=== PATIENT | female | born 1970 | race Caucasian/White ===

== ENCOUNTER 2017-02-19 22:23 | Emergency (ER) | payer MEDICAID, OTHER | END 2017-02-19 23:04 | disposition home or self-care (01) | DX: M77.31 Calcaneal spur, right foot (principal); R03.0 Elevated blood-pressure reading, without diagnosis of hypertension; E78.00 Pure hypercholesterolemia, unspecified; K21.9 Gastro-esophageal reflux disease without esophagitis; Z86.73 Personal history of transient ischemic attack (TIA), and cerebral infarction without residual deficits; F17.200 Nicotine dependence, unspecified, uncomplicated ==

== ENCOUNTER 2018-02-16 20:28 | Emergency (ER) | payer MEDICAID ==
--- NOTE | 2018-02-16 23:09 | ED Physician Documentation ---
PD HPI HEENT - Stated complaint Stated Complaint: TOOTH PX - Chief complaint Chief Complaint: Heent - History obtained from History obtained from: Patient - History of Present Illness Timing - onset: Last night Timing - details: Abrupt onset Pain level now: 7 Location: Tooth Recently seen: Not recently seen - Additional information Additional information: broke tooth last night while chewing, has pain and sensation of swelling. Her chief concern is risk of infection. 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 : None HEENT: None Psych: Panic attacks, Post traumatic stress disorder Musculoskeletal: None Derm: None - Past Surgical History Past Surgical History: Yes General: Cholecystectomy Ortho: Spine surgery /MORTGAGE LOAN PROCESSING CLERK: section - Present Medications Home Medications: Ambulatory Orders Medication Instructions Recorded Confirmed Atorvastatin Calcium [Lipitor] 40 mg PO DAILY 07/06/14 02/16/18 clonazePAM [KlonoPIN] 1 mg PO TID 07/06/14 02/19/17 Cyclobenzaprine [Flexeril] 10 mg PO TID 02/19/17 02/19/17 Aspirin EC [Ecotrin] 1 tab PO DAILY 02/16/18 02/16/18 Penicillin Vk 500 mg PO Q6H 5 Days tablet 02/16/18 - Allergies Allergies/Adverse Reactions: Allergies Allergy/AdvReac Type Severity Reaction Status Date / Time clopidogrel bisulfate * Allergy Unknown Verified 02/16/18 20:41 [From Plavix] hydrocodone bitartrate * Allergy Unknown Verified 02/16/18 20:41 [From Vicodin] iodine Allergy Unknown Verified 02/16/18 20:41 naproxen Allergy Unknown Verified 02/16/18 20:41 - Social History Does the pt smoke?: Yes Smoking Status: Current every day smoker Does the pt drink ETOH?: No Does the pt have substance abuse?: No - Immunizations Immunizations are current?: Yes - POLST Patient has POLST: No PD ED PE NORMAL - Vitals Vital signs reviewed: Yes - General General: Alert and oriented X 3, No acute distress, Well developed/nourished PD ED PE EXPANDED - HEENT HEENT Visual: 1 - deformity (posterior aspect of tooth is absent (and teeth 17-20 are entirely absent)) Results - Vitals Vitals: Vital Signs - 24 hr 02/16/18 02/16/18 20:38 23:34 Temperature 36.0 C L 35.6 C L Heart Rate 107 H 102 H Respiratory 16 18 Rate Blood Pressure 142/99 H 152/97 H O2 Saturation 98 97 Oxygen O2 Source Room air PD MEDICAL DECISION MAKING - ED course Complexity details: reviewed old records, considered differential, d/w patient ED course: no evidence of infection; rx plavix as prophylaxis. Cavit applied with good result (no longer feels sharp edge of the tooth). She says she is visiting [place] and will be returning home Tuesday; she says she will likely be able to see a dentist when she returns home. Departure - Departure Disposition: Home, Self Care Clinical Impression: Pain, dental Condition: Good Instructions: ED Tooth Pain Follow-Up: ZOË BUTTERFIELD MD [Primary Care Provider] - Prescriptions: Penicillin Vk 500 mg PO Q6H 5 Days tablet Discharge Date/Time: 02/16/18 23:38
[2018-02-16] MEDS ORDERED: PENICILLIN VK 250 MG TABLET PO STA (23:21)
[2018-02-16 23:35] VITALS: BP 152/97
== END 2018-02-16 23:38 | disposition home or self-care (01) ==
LOC: ED 20:28
DX: K08.89 Other specified disorders of teeth and supporting structures (principal); E78.00 Pure hypercholesterolemia, unspecified; F17.200 Nicotine dependence, unspecified, uncomplicated; Z86.73 Personal history of transient ischemic attack (TIA), and cerebral infarction without residual deficits
CPT/HCPCS: 99283; A9270

== ENCOUNTER 2018-09-21 19:24 | Emergency (ER) | payer MEDICAID ==
[2018-09-21] MEDS ORDERED: PENICILLIN VK 250 MG TABLET PO STA (20:06)
[2018-09-21] MEDS ORDERED: oxyCODONE 5 MG TABLET PO STA (20:16)
--- NOTE | 2018-09-21 20:18 | ED Physician Documentation ---
History of Present Illness - Stated complaint Stated Complaint: BROKEN TOOTH - Chief complaint Chief Complaint: Heent - History obtained from History obtained from: Patient - History of Present Illness Timing: How many days ago (2) Pain level max: 8 Pain level now: 8 Improved by: Nothing Worsened by: Temperature - Additonal information Additional information: Patient is a 47-year-old female who presents to the emergency department after breaking part of a porcelain filling off of the front of her tooth. Contacted her dentist who cannot see her, but did recommend placing dental wax over the area to help with discomfort. She is concerned it may be becoming infected. No fevers. 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 : None HEENT: None Psych: Panic attacks, Post traumatic stress disorder Musculoskeletal: None Derm: None - Past Surgical History Past Surgical History: Yes General: Cholecystectomy Ortho: Spine surgery /SAWING AND ASSEMBLY SUPERVISOR: section - Present Medications Home Medications: Ambulatory Orders Medication Instructions Recorded Confirmed Atorvastatin Calcium [Lipitor] 40 mg PO DAILY 07/06/14 02/16/18 clonazePAM [KlonoPIN] 1 mg PO TID 07/06/14 02/19/17 Cyclobenzaprine [Flexeril] 10 mg PO TID 02/19/17 02/19/17 Aspirin EC [Ecotrin] 1 tab PO DAILY 02/16/18 02/16/18 Albuterol Sulfate [Proair Hfa 1 - 2 puffs INH Q4H PRN 09/21/18 09/21/18 Inhaler] Oxycodone HCl/Acetaminophen 1 - 2 each PO Q6H PRN #9 tablet 09/21/18 [Percocet 5-325 mg Tablet] Penicillin V Potassium 500 mg PO Q6HR #40 tablet 09/21/18 - Allergies Allergies/Adverse Reactions: Allergies Allergy/AdvReac Type Severity Reaction Status Date / Time clopidogrel bisulfate * Allergy Unknown Verified 09/21/18 19:35 [From Plavix] hydrocodone bitartrate * Allergy Unknown Verified 09/21/18 19:35 [From Vicodin] iodine Allergy Unknown Verified 09/21/18 19:35 naproxen Allergy Unknown Verified 09/21/18 19:35 - Social History Does the pt smoke?: Yes Smoking Status: Current every day smoker Does the pt drink ETOH?: No Does the pt have substance abuse?: No - Immunizations Immunizations are current?: Yes - POLST Patient has POLST: No PD ED PE NORMAL - Vitals Vital signs reviewed: Yes - General General: Alert and oriented X 3, No acute distress - Neck Neck: Supple, no meningeal sign - Cardiac Cardiac: RRR - Respiratory Respiratory: No respiratory distress, Clear bilaterally - Derm Derm: Warm and dry - Extremities Extremities: No edema - Neuro Neuro: Alert and oriented X 3 - Psych Psych: Normal mood, Normal affect PD ED PE EXPANDED - HEENT HEENT Visual: 1 - tenderness (Part of the porcelain filling is missing) Results - Vitals Vitals: Vital Signs - 24 hr 09/21/18 09/21/18 19:33 20:31 Temperature 37 C Heart Rate 105 H 91 Respiratory 18 16 Rate Blood Pressure 167/97 H 156/93 H O2 Saturation 100 98 Oxygen O2 Source Room air PD MEDICAL DECISION MAKING - ED course Complexity details: considered differential, d/w patient, d/w family ED course: Benzocaine was applied with good relief of pain. Will prescribe pain medication for home as well as antibiotics. We will have her follow-up closely with her dentist. No drainable abscess. Patient counseled regarding signs and symptoms for which I believe and urgent re-evaluation would be necessary. Patient with good understanding of and agreement to plan and is comfortable going home at this time This document was made in part using voice recognition software. While efforts are made to proofread this document, sound alike and grammatical errors may occur. Departure - Departure Disposition: 01 Home, Self Care Clinical Impression: Pain due to dental caries Condition: Good Instructions: ED Tooth Pain Follow-Up: ZOË BUTTERFIELD MD [Primary Care Provider] - Prescriptions: Penicillin V Potassium 500 mg PO Q6HR #40 tablet Oxycodone HCl/Acetaminophen [Percocet 5-325 mg Tablet] 1 - 2 each PO Q6H PRN #9 tablet PRN Reason: pain Comments: Take all anitbiotics until gone. Return if you worsen. Do not drink alcohol or drive while on narcotic pain medicine. Note that many narcotic pain relievers also contain tylenol/acetaminophen. Please ensure that your total dose of acetaminophen from all sources does not exceed 3 grams (3000mg) per day. You may constipated on this medication, take a stool softener such as "Colace" twice a day while you are on it. Also recommend a [id number] laxative such as senna or MiraLAX any day that you do not have a bowel movement. If you received narcotic pain medication in the emergency department, do not drive or operate machinery for the next 24 hours. Discharge Date/Time: 09/21/18 20:38
[2018-09-21 20:33] VITALS: BP 156/93
== END 2018-09-21 20:38 | disposition home or self-care (01) ==
LOC: ED 19:24
DX: K02.9 Dental caries, unspecified (principal); E78.00 Pure hypercholesterolemia, unspecified; F17.200 Nicotine dependence, unspecified, uncomplicated
CPT/HCPCS: 99283; A9270

== ENCOUNTER 2019-06-12 17:06 | Emergency (ER) | payer MEDICAID ==
[2019-06-12 17:15] VITALS: BP 195/100
--- NOTE | 2019-06-12 17:35 | ED Physician Documentation ---
PD HPI LOWER EXT INJURY - Stated complaint Stated Complaint: LT KNEE PX - Chief complaint Chief Complaint: Ext Problem - History obtained from History obtained from: Patient - History of Present Illness PD HPI LOW EXT INJURY LOCATION: Left (No specific injury she awoke about a month ago with anterior and medial left knee pain. Is been progressive since that time. She seen her doctor several times and had negative x-rays, negative ultrasound. She is had 2 courses of steroids, muscle relaxers and Percocet without relief. 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 : None HEENT: None Psych: Panic attacks, Post traumatic stress disorder Musculoskeletal: None Derm: None - Past Surgical History Past Surgical History: Yes General: Cholecystectomy Ortho: Spine surgery /BOARD OF DIRECTORS: section - Present Medications Home Medications: Ambulatory Orders Medication Instructions Recorded Confirmed Atorvastatin Calcium [Lipitor] 40 mg PO DAILY 07/06/14 02/16/18 clonazePAM [KlonoPIN] 1 mg PO TID 07/06/14 02/19/17 Cyclobenzaprine [Flexeril] 10 mg PO TID 02/19/17 02/19/17 Aspirin EC [Ecotrin] 1 tab PO DAILY 02/16/18 02/16/18 Albuterol Sulfate [Proair Hfa 1 - 2 puffs INH Q4H PRN 09/21/18 09/21/18 Inhaler] Oxycodone HCl/Acetaminophen 1 - 2 each PO Q6H PRN #9 tablet 09/21/18 [Percocet 5-325 mg Tablet] Penicillin V Potassium 500 mg PO Q6HR #40 tablet 09/21/18 Tizanidine HCl 2 mg PO Q8H PRN #10 tablet 06/12/19 - Allergies Allergies/Adverse Reactions: Allergies Allergy/AdvReac Type Severity Reaction Status Date / Time clopidogrel bisulfate * Allergy Unknown Verified 09/21/18 19:35 [From Plavix] hydrocodone bitartrate * Allergy Unknown Verified 09/21/18 19:35 [From Vicodin] iodine Allergy Unknown Verified 09/21/18 19:35 naproxen Allergy Unknown Verified 09/21/18 19:35 - Social History Does the pt smoke?: Yes Smoking Status: Current every day smoker Does the pt drink ETOH?: No Does the pt have substance abuse?: No - Immunizations Immunizations are current?: Yes - POLST Patient has POLST: No PD ED PE NORMAL - Vitals Vital signs reviewed: Yes - General General: Alert and oriented X 3, No acute distress - Extremities Extremities: Other (The left knee has a tiny effusion, there is no warmth or redness. Relatively painless passive range of motion. Mild tenderness anteri amaris and medially. No ligamentous laxity.) - Neuro Neuro: Alert and oriented X 3, Normal speech Results - Vitals Vitals: Vital Signs - 24 hr 06/12/19 17:12 Temperature 36.5 C Heart Rate 108 H Respiratory 18 Rate Blood Pressure 195/100 H O2 Saturation 99 Oxygen O2 Source Room air PD MEDICAL DECISION MAKING - ED course ED course: 48-year-old woman with progressive knee pain. No evidence of infection. She has had a thorough outpatient work-up and there is no more emergency medical condition identified. Continued symptomatic treatment and follow-up with orthopedics was recommended. Departure - Departure Disposition: 01 Home, Self Care Clinical Impression: Left knee pain Qualifiers: Chronicity: acute Qualified Code(s): M25.562 - Pain in left knee Condition: Good Record reviewed to determine appropriate education?: Yes Instructions: ED Knee Pain [facility] Follow-Up: [facility] [Provider Group] - Within 1 week Prescriptions: Tizanidine HCl 2 mg PO Q8H PRN #10 tablet PRN Reason: Spasms Comments: Your blood pressure was elevated today on check into the emergency department. This does not mean that you have hypertension, it is a common phenomenon to come to the emergency department and have elevated blood pressure. I recommend that you see your primary care physician within the week to have it rechecked when you are feeling better.
== END 2019-06-12 17:42 | disposition home or self-care (01) ==
LOC: ED 17:06
DX: M25.462 Effusion, left knee (principal); R03.0 Elevated blood-pressure reading, without diagnosis of hypertension; F17.200 Nicotine dependence, unspecified, uncomplicated
CPT/HCPCS: 99283

== ENCOUNTER 2020-08-15 19:27 | Emergency (ER) | payer MEDICAID ==
--- NOTE | 2020-08-15 22:17 | ED Physician Documentation ---
History of Present Illness - Stated complaint Stated Complaint: COUGH, CP - Chief complaint Chief Complaint: Resp - History obtained from History obtained from: Patient - Additonal information Additional information: Patient is a 49-year-old female who presents with a chief complaint of 2-day history of cough. Patient denies fevers she reports a dry cough, she is concerned that she is at home with her family who has a child and wants to make sure that it is okay for her to stay around the baby. She denies any known COVID contacts denies any chest pain or wheezing or shortness of breath.R eports that she is a former smoker who quit smoking 2 months ago. Review of Systems Constitutional: reports: Reviewed and negative Eyes: reports: Reviewed and negative Ears: reports: Reviewed and negative Nose: reports: Reviewed and negative Throat: reports: Reviewed and negative Cardiac: reports: Reviewed and negative Respiratory: reports: Cough GI: reports: Reviewed and negative : reports: Reviewed and negative Skin: reports: Reviewed and negative Musculoskeletal: reports: Reviewed and negative Neurologic: reports: Reviewed and negative Psychiatric: reports: Reviewed and negative Endocrine: reports: Reviewed and negative Immunocompromised: reports: Reviewed and negative PD PAST MEDICAL HISTORY - Past Medical History Past Medical History: Yes Cardiovascular: Hypertension, High cholesterol Respiratory: Asthma, Other Neuro: TIA Endocrine/Autoimmune: None GI: GERD 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 HEENT: None Psych: Panic attacks, Post traumatic stress disorder Musculoskeletal: None Derm: None Other Past Medical History: bronchitis - Past Surgical History Past Surgical History: Yes General: Cholecystectomy Ortho: Spine surgery /DRUM SANDER OFFBEARER: section - Present Medications Home Medications: Ambulatory Orders Medication Instructions Recorded Confirmed Atorvastatin Calcium [Lipitor] 40 mg PO DAILY 07/06/14 02/16/18 clonazePAM [KlonoPIN] 1 mg PO TID 07/06/14 02/19/17 Cyclobenzaprine [Flexeril] 10 mg PO TID 02/19/17 02/19/17 Aspirin EC [Ecotrin] 1 tab PO DAILY 02/16/18 02/16/18 Albuterol Sulfate [Proair Hfa 1 - 2 puffs INH Q4H PRN 09/21/18 09/21/18 Inhaler] Oxycodone HCl/Acetaminophen 1 - 2 each PO Q6H PRN #9 tablet 09/21/18 [Percocet 5-325 mg Tablet] Penicillin V Potassium 500 mg PO Q6HR #40 tablet 09/21/18 Tizanidine HCl 2 mg PO Q8H PRN #10 tablet 06/12/19 - Allergies Allergies/Adverse Reactions: Allergies Allergy/AdvReac Type Severity Reaction Status Date / Time clopidogrel bisulfate * Allergy Unknown Verified 08/15/20 19:37 [From Plavix] hydrocodone bitartrate * Allergy Unknown Verified 08/15/20 19:37 [From Vicodin] iodine Allergy Unknown Verified 08/15/20 19:37 naproxen Allergy Unknown Verified 08/15/20 19:37 - Social History Does the pt smoke?: No Smoking Status: Never smoker Does the pt drink ETOH?: No Does the pt have substance abuse?: No - Immunizations Immunizations are current?: Yes - POLST Patient has POLST: No PD ED PE NORMAL - Vitals Vital signs reviewed: Yes - General General: Alert and oriented X 3, No acute distress, Well developed/nourished - HEENT HEENT: Atraumatic, PERRL, Moist mucous membranes - Neck Neck: Supple, no meningeal sign, No adenopathy - Cardiac Cardiac: RRR, No murmur - Respiratory Respiratory: No respiratory distress, Clear bilaterally, Other (No wheezes rales or rhonchi) - Abdomen Abdomen: Normal bowel sounds, Soft, Non tender, Non distended, No organomegaly - Back Back: No CVA TTP, No spinal TTP - Derm Derm: Normal color, Warm and dry, No rash - Extremities Extremities: No deformity, No tenderness to palpate, Normal ROM s pain, No edema, No calf tenderness / cord - Neuro Neuro: Alert and oriented X 3, chair spring assembler 2-12 intact, No motor deficit, No sensory deficit, Normal speech - Psych Psych: Normal mood, Normal affect Results - Vitals Vitals: Vital Signs - 24 hr 08/15/20 08/15/20 19:30 22:50 Temperature 36.7 C 36.8 C Heart Rate 111 H 101 H Respiratory 16 20 Rate Blood Pressure 149/93 H 125/96 H O2 Saturation 98 100 Oxygen O2 Source Room air PD MEDICAL DECISION MAKING - ED course ED course: 49-year-old female is a former smoker with a 2-day history of a dry cough presents for evaluation. She is well-appearing on exam no hypoxia or tachypnea on my exam her heart rate is 90 and regular. I did offer to perform labs and other tests such as an EKG and chest x-ray however the patient does not wish to have any additional testing other done then a history and physical exam she is well-appearing she is afebrile she is no longer tachycardic on my exam there is no respiratory distress no wheezing no use of accessory muscles Elling encourage this patient to follow-up with her primary care provider on Tuesday we did send a COVID screening and she should follow-up on the results of her covered screening next week as well. Departure - Departure Disposition: Home, Self Care Clinical Impression: Viral syndrome, Cough Condition: Stable Instructions: ED Viral Syndrome Follow-Up: ZOË BUTTERFIELD MD [Primary Care Provider] - 08/18/20 Comments: Please follow-up with your primary care provider on Tuesday for recheck. If you develop a fever take either Tylenol or ibuprofen as needed for pain or fever. Return to the emergency department with any concerns. Discharge Date/Time: 08/15/20 22:52
[2020-08-15 22:51] VITALS: BP 125/96
== END 2020-08-15 22:52 | disposition home or self-care (01) ==
LOC: ED 19:27
DX: B34.9 Viral infection, unspecified (principal); Z20.828 Contact with and (suspected) exposure to other viral communicable diseases; Z87.891 Personal history of nicotine dependence
CPT/HCPCS: 99282; 99283

== ENCOUNTER 2020-08-26 20:36 | Outpatient (CLI) | payer MEDICAID | END 2020-08-26 20:37 | disposition home or self-care (01) | LOC: COV 20:36 | PROVIDERS: ATTEND Family Medicine | DX: Z20.828 Contact with and (suspected) exposure to other viral communicable diseases (principal) ==

== ENCOUNTER 2020-11-06 23:57 | Outpatient (CLI) | payer MEDICAID | END 2020-11-06 23:58 | disposition EMS.NT | LOC: EMS 23:57 | PROVIDERS: ATTEND Surgery | DX: I10 Essential (primary) hypertension (principal) ==

== ENCOUNTER 2021-04-11 17:12 | Emergency (ER) | payer MEDICAID ==
[2021-04-11 17:21] VITALS: BP 151/96
--- NOTE | 2021-04-11 17:29 | ED Physician Documentation ---
History of Present Illness - Stated complaint Stated Complaint: COUGH,CP,MUCUS W/BLOOD - Chief complaint Chief Complaint: Resp - History obtained from History obtained from: Patient - Additonal information Additional information: Fairly healthy 50-year-old who does smoke tobacco presents with 2 days of productive cough of green sputum with some blood flecks. Fever to 101. Denies shortness of breath. Does have a sick contact at home with URI. Not immunized against Covid yet. Review of Systems Constitutional: reports: Fever, Chills. 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 : None HEENT: None Psych: Panic attacks, Post traumatic stress disorder Musculoskeletal: None Derm: None - Past Surgical History Past Surgical History: Yes General: Cholecystectomy Ortho: Spine surgery /BACON STRINGER: section - Present Medications Home Medications: Ambulatory Orders Medication Instructions Recorded Confirmed Atorvastatin Calcium [Lipitor] 40 mg PO DAILY 07/06/14 04/11/21 clonazePAM [KlonoPIN] 1 mg PO TID PRN 07/06/14 04/11/21 Aspirin EC [Ecotrin] 1 tab PO DAILY 02/16/18 04/11/21 Amoxicillin 2 tab PO TID #42 tab 04/11/21 Hydrochlorothiazide 25 mg PO DAILY 04/11/21 04/11/21 Propranolol [Inderal] 20 mg PO BID 04/11/21 04/11/21 - Allergies Allergies/Adverse Reactions: Allergies Allergy/AdvReac Type Severity Reaction Status Date / Time bee pollen Allergy Anaphylaxis Verified 04/11/21 17:21 clopidogrel bisulfate * Allergy Unknown Verified 04/11/21 17:21 [From Plavix] hydrocodone bitartrate * Allergy Unknown Verified 04/11/21 17:21 [From Vicodin] iodine Allergy Unknown Verified 04/11/21 17:21 naproxen Allergy Unknown Verified 04/11/21 17:21 - Social History Does the pt smoke?: No Smoking Status: Never smoker Does the pt drink ETOH?: No Does the pt have substance abuse?: No - Immunizations Immunizations are current?: Yes - POLST Patient has POLST: No PD ED PE NORMAL - Vitals Vital signs reviewed: Yes - General General: Alert and oriented X 3, No acute distress - HEENT HEENT: PERRL - Neck Neck: Supple, no meningeal sign, No bony TTP - Cardiac Cardiac: RRR, No murmur - Respiratory Respiratory: No respiratory distress, Other (Focal rhonchi left base) - Abdomen Abdomen: Non tender - Neuro Neuro: Alert and oriented X 3, Normal speech Results - Vitals Vitals: Vital Signs - 24 hr 04/11/21 17:18 Temperature 36.0 C L Heart Rate 97 Respiratory 16 Rate Blood Pressure 151/96 H O2 Saturation 99 Oxygen O2 Source Room air PD MEDICAL DECISION MAKING - ED course ED course: 50-year-old woman with clinical pneumonia albeit radiographically occult. She is treated with high-dose amoxicillin. She declined an inhaler, she has one waiting for her at the pharmacy. Departure - Departure Disposition: 01 Home, Self Care Clinical Impression: Pneumonia Qualifiers: Pneumonia type: due to unspecified organism Laterality: left Lung location: lower lobe of lung Qualified Code(s): J18.9 - Pneumonia, unspecified organism Condition: Good Record reviewed to determine appropriate education?: Yes Instructions: Pneumonia Dc Prescriptions: Amoxicillin 2 tab PO TID #42 tab Comments: Fill and take the albuterol inhaler that your physician has already called in for you as per his prescription. Return for new or worsening symptoms. Recheck with your doctor in a week.
[2021-04-11] MEDS ORDERED: AMOXICILLIN 250 MG CAPSULE PO STA (17:52)
--- NOTE | 2021-04-11 17:54 | XRAY Report ---
PROCEDURE: Chest 2 View X-Ray INDICATIONS: cough TECHNIQUE: 2 view(s) of the chest. COMPARISON: None. FINDINGS: Surgical changes and devices: Cervical spine fixation hardware is seen. Cholecystectomy clips are se en. Lungs and pleura: No pleural effusions or pneumothorax. Lungs are clear. Mediastinum: Mediastinal contours are normal. Heart size is normal. Bones and chest wall: No suspicious bony abnormalities. Soft tissues appear unremarkable. IMPRESSION: Clear lungs, without infiltrates. Postoperative changes are seen. Reviewed by: Mario Oconnor MD on 04/11/2021 4:52 PM [facility] Approved by: Mario Oconnor MD on 04/11/2021 4:52 PM [facility] Station ID: [id number]
== END 2021-04-11 18:00 | disposition home or self-care (01) ==
LOC: ED 17:12
DX: J18.9 Pneumonia, unspecified organism (principal); Z87.891 Personal history of nicotine dependence
CPT/HCPCS: 71046; 99283; A9270